=== PATIENT | female | born 1940 | race Caucasian/White ===

== ENCOUNTER → 2023-11-08 09:01 | Outpatient (REF) | payer MEDICARE, OTHER, SELFPAY ==
[2023-11-08 09:59] LABS: Calcium 9.6 mg/dl (8.4-10.2); Phosphorus 4.3 mg/dl (2.5-4.5)
[2023-11-08 10:08] LABS: Vitamin D, 25-OH*** 41.7 ng/mL (30-80)
[2023-11-10 09:38] LABS: Intact PTH 16.9 pg/ml (13.6-85.8)
[2023-11-11 11:34] LABS: Albumin 4.35 g/dL (3.75-5.01); Alpha 1 Globulin 0.21 g/dL (0.19-0.46); Alpha 2 Globulin 0.84 g/dL (0.48-1.05); Free Kappa Light Chains,Quant 15.58 mg/L (3.30-19.40); Free Lambda Light Chains,Quant 11.97 mg/L (5.71-26.30); IgA 230 mg/dL (68-408); IgG 785 mg/dL (768-1632); IgM 64 mg/dL (35-263); Immunofixation Electrophoresis IFE Done; Total Protein-Electrophoresis 7.1 g/dL (6.3-8.2)
== END ==
LOC: REG 09:01
PROVIDERS: ATTENDING PHYSICIAN Internal Medicine; FAMILY PHYSICIAN Internal Medicine
DX: M81.0 Age-related osteoporosis without current pathological fracture (principal)
CPT/HCPCS: 36415; 82306; 82784; 83521; 83970; 84100; 84155; 84165; 86334

== ENCOUNTER → 2024-02-15 10:32 | Outpatient (REF) | payer MEDICARE, OTHER, SELFPAY ==
[2024-02-15 11:34] LABS: Urine Albumin Negative (Neg - Trace); Urine Bilirubin Negative (Negative); Urine Character Clear (Clear); Urine Color Yellow; Urine Glucose Negative (Negative); Urine Ketone Negative (Negative); Urine Leukocyte Trace (Negative); Urine Nitrite Negative (Negative); Urine Occult Blood Negative (Negative); Urine Urobilinogen Negative (Neg - 1+)
[2024-02-15 12:10] LABS: Urine Red Blood Cell 0-2 /HPF (0-2)
== END ==
LOC: REG 10:32
PROVIDERS: ATTENDING PHYSICIAN Nurse Practitioner Family
DX: R35.0 Frequency of micturition (principal); R30.0 Dysuria
CPT/HCPCS: 81003; 81015; 87086

== ENCOUNTER → 2024-04-02 11:31 | Outpatient (REF) | payer MEDICARE, OTHER, SELFPAY | LOC: WDC 11:31 | PROVIDERS: ATTENDING PHYSICIAN Internal Medicine | DX: Z12.31 Encounter for screening mammogram for malignant neoplasm of breast (principal) | CPT/HCPCS: 77063; 77067 ==

== ENCOUNTER → 2024-04-08 07:23 | Outpatient (REF) | payer MEDICARE, OTHER, SELFPAY ==
[2024-04-08 08:59] LABS: Microalbumin, Random Urine 2.4 mg/dl (0.6-1.7); Microalbumin/creatinine Ratio 30.2 mg/g
[2024-04-08 09:01] LABS: ALT (SGPT) 29 U/L (0-35); AST (SGOT) 28 U/L (14-36); Albumin 4.6 g/dl (3.5-5.0); Alkaline Phosphatase 79 U/L (38-126); Blood Urea Nitrogen 28 mg/dl (7-17); Calcium 9.8 mg/dl (8.4-10.2); Carbon Dioxide 26 mmol/L (22-30); Chloride 104 mmol/L (98-107); Glucose 113 mg/dl (70-99); HDL Cholesterol 48 mg/dl; LDL Cholesterol, Calculated 60 mg/dl; Potassium 4.3 mmol/L (3.5-5.1); Sodium 140 mmol/L (135-145); Total Bilirubin 0.4 mg/dl (0.2-1.3); Total Cholesterol 151 mg/dl (50-199); Total Protein 6.9 g/dl (6.3-8.2); Triglyceride 218 mg/dl (10-149); Very Low Density Lipoprotein 43 mg/dl (0-30); eGFR > 60.00
[2024-04-08 09:28] LABS: TSH 0.82 uIU/ml (0.47-4.68)
[2024-04-08 09:30] LABS: Glycohemoglobin (HgbA1c) 6.9 % (4.0-5.6)
== END ==
LOC: REG 07:23
PROVIDERS: ATTENDING PHYSICIAN Internal Medicine
DX: E11.9 Type 2 diabetes mellitus without complications (principal); I10 Essential (primary) hypertension; E78.2 Mixed hyperlipidemia
CPT/HCPCS: 36415; 80053; 80061; 82043; 82570; 83036; 84443

== ENCOUNTER → 2024-04-24 15:16 | Outpatient (REF) | payer MEDICARE, OTHER, SELFPAY | LOC: RCS 15:16 | PROVIDERS: ATTENDING PHYSICIAN Nurse Practitioner Family | DX: I35.0 Nonrheumatic aortic (valve) stenosis (principal); R42 Dizziness and giddiness; I10 Essential (primary) hypertension | CPT/HCPCS: 93005 ==

== ENCOUNTER → 2024-05-07 07:22 | Outpatient (REF) | payer MEDICARE, OTHER, SELFPAY | LOC: RCS 07:22 | PROVIDERS: ATTENDING PHYSICIAN Nurse Practitioner Family; FAMILY PHYSICIAN Internal Medicine | DX: R42 Dizziness and giddiness (principal); I35.0 Nonrheumatic aortic (valve) stenosis; I10 Essential (primary) hypertension | CPT/HCPCS: 93306 ==

== ENCOUNTER 2024-05-07 08:07 | Emergency (ER) | payer MEDICARE, OTHER, SELFPAY ==
[2024-05-07 08:14] VITALS: BP 174/100
[2024-05-07 10:51] VITALS: BP 158/79; BMI 24.6
[2024-05-07 13:00] VITALS: BP 156/74
--- NOTE | 2024-05-07 13:15 | ED.GENMED ---
History of Present Illness
General
Chief Complaint: Musculo-Skeletal Complaint
Source: patient
Exam Limitations: none
Time Seen by Provider: 05/07/24 09:18
Nursing documentation reviewed up to this point in time: agreed with
History of Present Illness
History of Present Illness:
83-year-old female presenting to the emergency department today with concerns of posterior left thigh pain since last night achy throughout the night last night. Claims that she may have injured her hamstring a week or 2 ago but initially felt
improved symptoms until last night. Denies any redness swelling warmth fevers chest pain shortness of breath or additional symptoms
Past History
Past History
ED Past Medical History: HTN, Hypercholesterolemia, NIDDM and Other (Migraines)
ED Past Surgical History: , Orthopedic, Tonsilectomy and Other (Adenoids)
Social History
Tobacco: Non-smoker
Alcohol: None
Drug: None
Personal:
Living: with family
Employment: Retired
Family History
Family History: Other (Noncontributory)
Review of Systems
Review of Systems
Allergies reviewed?: Yes
All Other Systems: ROS reviewed and negative except as documented in HPI and ROS
Phy Exam
Physical Exam
Physical Exam:
GENERAL: Alert , in no apparent distress
EYE: pupils equal and reactive
NECK: Supple, no significant adenopathy.
ENT: o/p clr, mmm.
CARDIAC: Regular rate and rhythm .
LUNGS: Clear breath sounds bilaterally, no acute respiratory distress, no wheezes/rales/rhonchi
ABDOMEN: Soft, without focal tenderness, no r/g, no cvat
NEUROLOGICAL: Alert and oriented, no focal neuro deficits
SKIN: Warm and dry, skin intact.
MUSCULOSKELETAL: No edema, well perfused.
PSYCH: Normal and appropriate interaction.
Course
Orders/Labs/Results
Orders:
Orders
05/07/24 09:30
CR Femur - Left Min 2 Vw Urgent
Comment:
Reason For Exam: leg pain
Venous Doppler Lwr Ext Left [US Periph Venous LOWER Ext LT] Urgent
Comment:
Reason For Exam: leg pain
Vital Signs
Initial and Last Documented VS:
Initial Vital Signs
Temp Pulse Resp BP Pulse Ox
97.9 F 81 17 174/100 96
05/07/24 08:14 05/07/24 08:14 05/07/24 08:14 05/07/24 08:14 05/07/24 08:14
Last Documented Vital Signs
Temp Pulse Resp BP Pulse Ox
97.9 F 76 16 158/79 95
05/07/24 08:14 05/07/24 10:51 05/07/24 10:51 05/07/24 10:51 05/07/24 10:51
MDM/Problems Addressed
MDM/Problems Addressed:
83-year-old female presenting to the emergency department with concerns of posterior left thigh pain. On examination no redness or warmth no signs of infection good range of motion and strength of the leg. Ultrasound performed without signs of
blood clot x-ray without bony abnormality. Patient with potential strain to the area concerning her recent injury advised for light activity stretching and rest as well as close primary care follow-up. Return precautions given.
*Critical Care Note
Total Time (30-74mins, 75-104mins- exclusive of procedures): Not Applicable
ED Attending Note
-
Portions of this chart may have been created with voice recognition software.� Occasional wrong word or��sound alike� substitutions may have occurred due to the inherent limitations of voice recognition software.
Discharge Plan
Departure
Patient Disposition: Home (Routine Discharge)
Date of Disposition: 05/07/24
Time of Disposition: 13:15
Patient with high blood pressure during this ER visit?: No
Condition: Good
Covid-19: Not Applicable
Discharge Problem:
Leg pain
Instructions: Muscle and Bone Pain (DC)
Prescriptions:
No Action
metformin 500 MG tablet
500 mg PO BID
aspirin [Aspir-Low] 81 MG tablet,delayed release (DR/EC)
81 mg PO DAILY
hulgtpacqy-jyjwtosgihqdp-bfef 1 TAB tablet
0.5 tab PO Q6HPRN PRN (Reason: tension headache)
verapamil 240 MG capsule,ext rel. pellets 24 hr
240 mg PO DAILY
escitalopram oxalate 10 MG tablet
10 mg PO DAILY
cyclosporine [Restasis] 10 DROPS dropperette
0.4 ml BOTH EYES BID
rosuvastatin 5 MG tablet
5 mg PO QPM
lisinopril-hydrochlorothiazide 1 EACH tablet
2 tab PO DAILY
Rx Instructions:
40/25
ascorbic acid (vitamin C) [Vitamin C] 500 MG tablet
500 mg PO DAILY
pantoprazole 40 MG tablet,delayed release (DR/EC)
40 mg PO DAILY
diclofenac sodium 25 MG tablet,delayed release (DR/EC)
50 mg PO PRN PRN (Reason: pain)
Benefiber 2 TSP Powder
2 tsp PO DAILY
Flaxseed 30 ML Powder
30 ml PO DAILY
acetaminophen 325 MG tablet
650 mg PO Q4HPRN PRN (Reason: mild pain) 0RF
docusate sodium 100 MG capsule
100 mg PO BID 0RF
ibuprofen 600 MG tablet
600 mg PO Q6 Qty: 30 0RF
metoclopramide HCl [Reglan] 5 mg tablet
5 mg PO TIDPRN PRN (Reason: headache, nausea) Qty: 10 0RF
methylprednisolone [Methylpred DP] 4 mg Tablets,Dose Pack
See Rx Instructions .ROUTE .COMPLEX Qty: 21 0RF
Rx Instructions:
orally per package directions
prednisone 10 mg Tablet
See Rx Instructions .ROUTE .COMPLEX Qty: 30 0RF
Rx Instructions:
Take By Mouth:
40 mg daily x3 days, 30 mg daily x3 days,
20 mg daily x3 days, 10 mg daily x3 days.
valacyclovir [Valtrex] 1 gram tablet
1,000 mg PO TID Qty: 21 0RF
Referrals:
Yasmani Cruz DO [Family Provider] -
Activity Restrictions/Additional Instructions:
You came to the emergency department today with concerns of leg pain. Here you had a reassuring x-ray and ultrasound. Please follow close with the primary care doctor within 1 to 2 weeks. Return to the emergency department for any worsening, new
or concerning symptoms.
Interventions
Interventions:
ED- Fall Risk Assessment Last Done: 05/07/24 10:51
ED-Musculoskeletal Assessment Last Done: 05/07/24 10:51
Discharge Date and Time
Print Language: BHUTANESE
== END 2024-05-07 13:28 | disposition home or self-care (01) ==
LOC: EMR 08:07
PROVIDERS: EMERGENCY PHYSICIAN Emergency Medicine; FAMILY PHYSICIAN Internal Medicine
DX: M79.652 Pain in left thigh (principal); I10 Essential (primary) hypertension; E78.00 Pure hypercholesterolemia, unspecified; E11.9 Type 2 diabetes mellitus without complications
CPT/HCPCS: 99284; 73552; 93971

== ENCOUNTER → 2024-11-11 07:18 | Outpatient (REF) | payer MEDICARE, OTHER, SELFPAY ==
[2024-11-11 08:47] LABS: ALT (SGPT) 34 U/L (0-35); AST (SGOT) 28 U/L (14-36); Albumin 4.5 g/dl (3.5-5.0); Alkaline Phosphatase 77 U/L (38-126); Blood Urea Nitrogen 30 mg/dl (7-17); Calcium 9.6 mg/dl (8.4-10.2); Carbon Dioxide 30 mmol/L (22-30); Chloride 100 mmol/L (98-107); Glucose 145 mg/dl (70-99); HDL Cholesterol 48 mg/dl; LDL Cholesterol, Calculated 85 mg/dl; Potassium 3.7 mmol/L (3.5-5.1); Sodium 139 mmol/L (135-145); Total Bilirubin 0.4 mg/dl (0.2-1.3); Total Cholesterol 188 mg/dl (50-199); Total Protein 7.2 g/dl (6.3-8.2); Triglyceride 275 mg/dl (10-149); Very Low Density Lipoprotein 55 mg/dl (0-30); eGFR > 60.00
[2024-11-11 08:49] LABS: Microalbumin, Random Urine 1.9 mg/dl (0.6-1.7)
[2024-11-11 09:19] LABS: TSH 1.98 uIU/ml (0.47-4.68)
[2024-11-11 09:34] LABS: Glycohemoglobin (HgbA1c) 7.5 % (4.0-5.6)
== END ==
LOC: REG 07:18
PROVIDERS: ATTENDING PHYSICIAN Internal Medicine
DX: E11.9 Type 2 diabetes mellitus without complications (principal); I10 Essential (primary) hypertension; E78.2 Mixed hyperlipidemia
CPT/HCPCS: 36415; 80053; 80061; 82043; 82570; 83036; 84443

== ENCOUNTER → 2025-01-01 07:34 | Outpatient (REF) | payer MEDICARE, OTHER, SELFPAY ==
[2025-01-01 10:21] LABS: ALT (SGPT) 37 U/L (0-35); AST (SGOT) 30 U/L (14-36); Albumin 4.4 g/dl (3.5-5.0); Alkaline Phosphatase 75 U/L (38-126); Blood Urea Nitrogen 29 mg/dl (7-17); Calcium 9.5 mg/dl (8.4-10.2); Carbon Dioxide 26 mmol/L (22-30); Chloride 106 mmol/L (98-107); Glucose 193 mg/dl (70-99); Potassium 3.8 mmol/L (3.5-5.1); Sodium 143 mmol/L (135-145); Total Bilirubin 0.4 mg/dl (0.2-1.3); Total Protein 7.1 g/dl (6.3-8.2); eGFR > 60.00
[2025-01-01 14:21] LABS: Vitamin D, 25-OH*** 37.8 ng/mL (30-80)
== END ==
LOC: RAD 07:34
PROVIDERS: ATTENDING PHYSICIAN Internal Medicine; FAMILY PHYSICIAN Internal Medicine
DX: M81.0 Age-related osteoporosis without current pathological fracture (principal)
CPT/HCPCS: 36415; 77080; 80053; 82306

== ENCOUNTER → 2025-01-14 10:12 | Outpatient (REF) | payer MEDICARE, OTHER, SELFPAY ==
[2025-01-14 10:57] LABS: % Basophils 0.8 % (0-2); % Eosinophils 2.1 % (0-6); % Immature Granulocytes 0.3 % (0-0.5); % Lymphocytes 40.5 % (20.5-51.1); % Monocytes 7.5 % (1.7-9.3); % Neutrophils 48.8 % (42.2-75.2); Absolute Basophils 0.1 10^3/uL (0-0.2); Absolute Eosinophils 0.1 10^3/uL (0-0.7); Absolute Lymphocytes 2.6 10^3/uL (1.2-3.4); Absolute Monocytes 0.5 10^3/uL (0.1-0.6); Absolute Neutrophils 3.1 10^3/uL (1.4-6.5); Hematocrit 41.7 % (37.0-47.0); Hemoglobin 13.8 g/dL (12.0-16.0); Mean Corp Hgb Conc. 33.1 g/dL (33.0-37.0); Mean Corpuscular Hgb 30.3 pg (27.0-31.0); Mean Corpuscular Volume 91.6 fL (81.0-99.0); Mean Platelet Volume 9.6 fL (7.4-10.4); Nucleated Red Blood Cells % 0 %; Platelet Count 173 10^3/uL (130-400); Red Blood Cell Count 4.55 10^6/uL (4.20-5.40); Red Cell Dist. Width 12.7 % (11.5-14.5); White Blood Cell Count 6.3 10^3/uL (4.8-10.8)
[2025-01-14 11:14] LABS: Urine Albumin 1+ (Neg - Trace); Urine Bilirubin Negative (Negative); Urine Character Clear (Clear); Urine Color Yellow; Urine Glucose Negative (Negative); Urine Ketone Negative (Negative); Urine Leukocyte Negative (Negative); Urine Nitrite Negative (Negative); Urine Occult Blood Negative (Negative); Urine Specific Gravity 1.015 (<1.030); Urine Urobilinogen Negative (Neg - 1+)
[2025-01-14 12:04] LABS: ALT (SGPT) 32 U/L (0-35); AST (SGOT) 25 U/L (14-36); Albumin 4.4 g/dl (3.5-5.0); Alkaline Phosphatase 73 U/L (38-126); Blood Urea Nitrogen 36 mg/dl (7-17); Calcium 10.1 mg/dl (8.4-10.2); Carbon Dioxide 33 mmol/L (22-30); Chloride 101 mmol/L (98-107); Glucose 133 mg/dl (70-99); Lipase 130 U/L (23-300); Potassium 3.5 mmol/L (3.5-5.1); Sodium 144 mmol/L (135-145); Total Bilirubin 0.5 mg/dl (0.2-1.3); Total Protein 7.4 g/dl (6.3-8.2); eGFR > 60.00
== END ==
LOC: REG 10:12
PROVIDERS: ATTENDING PHYSICIAN Nurse Practitioner Family; FAMILY PHYSICIAN Internal Medicine
DX: R10.10 Upper abdominal pain, unspecified (principal)
CPT/HCPCS: 36415; 80053; 81003; 81015; 83690; 85025

== ENCOUNTER → 2025-02-09 13:21 | Outpatient (REF) | payer MEDICARE, OTHER, SELFPAY ==
[2025-02-09 14:11] LABS: Microalbumin, Random Urine 3.1 mg/dl (0.6-1.7); Microalbumin/creatinine Ratio 47.3 mg/g
== END ==
LOC: REG 13:21
PROVIDERS: ATTENDING PHYSICIAN Nurse Practitioner Family; FAMILY PHYSICIAN Internal Medicine
DX: E11.9 Type 2 diabetes mellitus without complications (principal)
CPT/HCPCS: 82043; 82570

== ENCOUNTER → 2025-04-28 13:49 | Outpatient (REF) | payer MEDICARE, OTHER, SELFPAY | LOC: WDC 13:49 | PROVIDERS: ATTENDING PHYSICIAN Internal Medicine | DX: Z12.31 Encounter for screening mammogram for malignant neoplasm of breast (principal) | CPT/HCPCS: 77063; 77067 ==

== ENCOUNTER → 2025-05-07 09:58 | Outpatient (REF) | payer MEDICARE, OTHER, SELFPAY | LOC: WDC 09:58 | PROVIDERS: ATTENDING PHYSICIAN Internal Medicine | DX: R92.8 Other abnormal and inconclusive findings on diagnostic imaging of breast (principal) | CPT/HCPCS: 77065 ==

== ENCOUNTER → 2025-08-10 08:13 | Outpatient (REF) | payer MEDICARE, OTHER, SELFPAY ==
[2025-08-10 09:10] LABS: Hematocrit 41.5 % (37.0-47.0); Hemoglobin 13.5 g/dL (12.0-16.0); Mean Corp Hgb Conc. 32.5 g/dL (33.0-37.0); Mean Corpuscular Volume 93.7 fL (81.0-99.0); Nucleated Red Blood Cells % 0 %; Platelet Count 188 10^3/uL (130-400); Red Cell Dist. Width 12.9 % (11.5-14.5)
[2025-08-10 09:42] LABS: Urine Character Clear (Clear)
[2025-08-10 10:15] LABS: ALT (SGPT) 42 U/L (0-35); AST (SGOT) 33 U/L (14-36); Albumin 4.6 g/dl (3.5-5.0); Alkaline Phosphatase 81 U/L (38-126); Blood Urea Nitrogen 20 mg/dl (7-17); Calcium 9.6 mg/dl (8.4-10.2); Carbon Dioxide 33 mmol/L (22-30); Chloride 101 mmol/L (98-107); Glucose 135 mg/dl (70-99); HDL Cholesterol 48 mg/dl; LDL Cholesterol, Calculated 82 mg/dl; Potassium 4.4 mmol/L (3.5-5.1); Sodium 139 mmol/L (135-145); Total Protein 7.4 g/dl (6.3-8.2); Very Low Density Lipoprotein 41 mg/dl (0-30); eGFR > 60.00
[2025-08-10 10:24] LABS: Glycohemoglobin (HgbA1c) 7.7 % (4.0-5.9)
[2025-08-10 10:38] LABS: TSH 1.96 uIU/ml (0.47-4.68)
== END ==
LOC: REG 08:13
PROVIDERS: ATTENDING PHYSICIAN Internal Medicine
DX: N30.20 Other chronic cystitis without hematuria (principal); E78.2 Mixed hyperlipidemia; I10 Essential (primary) hypertension; K21.9 Gastro-esophageal reflux disease without esophagitis; E11.9 Type 2 diabetes mellitus without complications
CPT/HCPCS: 36415; 80053; 80061; 81003; 81015; 83036; 84443; 85025